=== PATIENT | male | born 1935 | race Caucasian/White ===

== ENCOUNTER 2020-02-19 09:39 | Outpatient (CLI) | payer OTHER ==
[2020-02-19] MEDS ORDERED: Iopamidol 370 76% 100 ML VIAL ONE (09:51)
--- NOTE | 2020-02-19 11:01 | CT ---
CT ABDOMEN AND PELVIS WITH IV CONTRAST 02/19/2020 CLINICAL INFORMATION: Prostate cancer. Frequent urination. COMPARISON: None. Technique: Multiple contiguous axial CT images are obtained through the abdomen and pelvis with IV contrast. Cor onal reformatted images are provided. FINDINGS: Lower Chest: Mild bibasilar atelectasis. There is elevation right hemidiaphragm. Vessels: Vascular calcifications are seen in the abdominal aorta and iliac arteries as well as involv ing the coronary arteries. Abdomen: Portal vein:Patent Gallbladder: Within normal limits for CT imaging. Liver: within normal limits. Spleen: within normal limits. Pancreas: within normal limits. Adrenals: within normal limits. Kidneys: within normal limits. Bowel: Colonic diverticulosis seen diffusely throughout the colon. Loops of small bowel are normal in caliber. Appendix: The appendix is visualized and normal in caliber. Peritoneum: No ascites or free air; no fluid collection. Mesentery and Retroperitoneum: No enlarged mesenteric or retroperitoneal lymph nodes. There is a mild ly prominent left para-aortic lymph node measuring 8 mm in short axis dimension, but again this is not enlarged by CT size criteria. Abdominal Wall: within normal limits. Pelvis: Reproductive Organs: No pelvic masses. Pelvis within normal limits. Bladder: Incompletely distended but otherwise grossly within normal limits. Bones: Multilevel degenerative changes are seen in the thoracic as well as lumbar spine with right co nvex curvature of thoracolumbar spine. There is severe central canal narrowing at the L3-4 and L4-5 levels due to degenerative changes. No suspicious lytic or sclerotic osseous lesions are identified. IMPRESSION: 1. No CT findings to suggest metastatic disease. No suspicious lytic or sclerotic osseous lesions are appreciated, and no enlarged lymph nodes are seen by CT size criteria. 2. Vascular calcifications. 3. Colonic diverticulosis. 4. Heterogeneous but nonenlarged prostate gland. 5. Multilevel degenerative changes of the lumbar spine with severe central canal narrowing at the L3- 4 and L4-5 levels.
--- NOTE | 2020-02-19 14:35 | NM ---
NUCLEAR MEDICINE BONE SCAN WHOLE BODY: (Skeletal scintigraphy) DATE: 02/19/2020 HISTORY: 85-year-old male with prostate cancer TECHNIQUE: IV injection of technetium 99m-MDP: 30.6 mCi 3 hour delayed whole body skeletal scintigraphy in anterior and posterior views. FINDINGS: There is bilaterally increased uptake of radiopharmaceutical at the bilateral shoulders, right knee, and right foot, consistent with degenerative changes. There is asymmetrical uptake at some levels in the lumbar spine consistent with large endplate lateral marginal osteophyte and degenerative disc disease. Otherwise, there are no foci of asymmetrically increased uptake that are particularly suspicious for bone metastases. IMPRESSION: 1. Osteoarthrosis and spondylosis. 2. No compelling evidence of skeletal metastasis.
== END 2020-02-19 09:40 | disposition home or self-care (01) ==
LOC: CT 09:39
PROVIDERS: ATTEND Urology
DX: C61 Malignant neoplasm of prostate (principal); K57.30 Diverticulosis of large intestine without perforation or abscess without bleeding; M47.816 Spondylosis without myelopathy or radiculopathy, lumbar region; M48.061 Spinal stenosis, lumbar region without neurogenic claudication; I70.90 Unspecified atherosclerosis
CPT/HCPCS: 74177; 78306; 82565; A9503; Q9967